=== PATIENT | female | born 1990 | race Hispanic/Latino ===

== ENCOUNTER 2018-11-16 16:41 | Emergency (ER) | payer OTHER ==
[2018-11-16] MEDS ORDERED: IBUPROFEN 800 MG TAB ONE (17:01)
== END 2018-11-16 17:09 | disposition home or self-care (01) ==
LOC: EDH 16:41
DX: R51 Headache (principal); Z98.890 Other specified postprocedural states; Z90.49 Acquired absence of other specified parts of digestive tract; Y03.8XXA Other assault by crashing of motor vehicle, initial encounter; Y93.89 Activity, other specified; Y92.89 Other specified places as the place of occurrence of the external cause; Y99.8 Other external cause status
CPT/HCPCS: 99282